=== PATIENT | female | born 1950 | race Caucasian/White ===

== ENCOUNTER 2022-02-22 14:46 | Inpatient (IN) | payer OTHER, MEDICAID ==
[~2022-02-22] VITALS: Ht 154.9 cm; Wt 67.6 kg
[2022-02-22] MEDS ORDERED: PIOG45TA63 PO (15:26)
[2022-02-22] MEDS ORDERED: SIMV40TA2 PO (15:26)
[2022-02-22] MEDS ORDERED: LOSA50TA3 PO (15:26)
[2022-02-22] MEDS ORDERED: ATEN-168 PO (15:26)
[2022-02-22] MEDS ORDERED: GLIP10TA PO (15:26)
[2022-02-22] MEDS ORDERED: ASPI-1457 PO (15:26)
[2022-02-22] MEDS ORDERED: METF-518 PO (15:26)
[2022-02-22 15:37] VITALS: BP_SYST 148
[2022-02-22 17:00] VITALS: BP_SYST 141
[2022-02-22] MEDS: D5/0.45 NS 1,000 ML IV SCH (17:12)
[2022-02-22] MEDS: cefTRIAXone 1 GM in D5W 50 ML IV SCH (17:35)
[2022-02-22 20:00] VITALS: BP_SYST 166
[2022-02-23] VITALS: BP_SYST 153
[2022-02-23 08:00] VITALS: BP_SYST 148
[2022-02-23] MEDS ORDERED: IPRATROPIUM BROM 0.5 MG/2.5 ML VIAL.NEB (ATROVENT) INH PRN ×2 (10:45→11:00)
[2022-02-23] MEDS ORDERED: ONDANSETRON HCL 4 MG/2 ML VIAL IVP PRN (10:45)
[2022-02-23] MEDS ORDERED: NALOXONE HCL 0.4 MG/ML AMP (NARCAN) IVP PRN ×2 (10:45)
[2022-02-23] MEDS ORDERED: LORazepam 2 MG/ML VIAL IVP PRN (10:45)
[2022-02-23] MEDS ORDERED: ACETAMINOPHEN 325 MG TABLET PO PRN ×2 (10:45→11:00)
[2022-02-23] MEDS ORDERED: HYDROcodone/ACETAMIN 10-325 MG TAB PO PRN (10:45)
[2022-02-23] MEDS ORDERED: ALBUTEROL SULFATE 0.083% 2.5 MG/3 ML VIAL.NEB INH PRN ×2 (10:45→11:00)
[2022-02-23] MEDS ORDERED: HYDROcodone/ACETAMIN 5-325 MG TAB (NORCO/ VICODIN) PO PRN (10:45)
[2022-02-23 10:53] VITALS: BP_SYST 148
[2022-02-23] MEDS ORDERED: ALBUTEROL MDI INHALATION 8 GM INH INH PRN (11:00)
[2022-02-23] MEDS: D5/0.45 NS 1,000 ML IV SCH ×2 (11:46→22:15)
[2022-02-23 12:00] VITALS: BP_SYST 143
[2022-02-23 12:03] LABS: BASOPHILS % (AUTO) 0.7 % (0.0-2.0); MONOCYTES # (AUTO) 0.5 K/uL (0.0-1.0)
[2022-02-23 12:15] LABS: EOSINOPHILS # (AUTO) 0.1 K/uL (0.0-0.4); EOSINOPHILS % (AUTO) 1.6 % (0.0-4.0); HEMOGLOBIN 9.7 g/dL (12.0-16.0); LYMPHOCYTES # (AUTO) 0.6 K/uL (1.0-5.5); LYMPHOCYTES % (AUTO) 14.9 % (20.5-51.5); MEAN CORPUSCULAR HEMOGLOBIN 30 pg (27-31); MEAN CORPUSCULAR HGB CONC 35 % (32-36); MEAN CORPUSCULAR VOLUME 87 fL (79.0-98.0); NEUTROPHILS # (AUTO) 2.9 K/uL (1.8-7.7); NEUTROPHILS % (AUTO) 69.8 % (40.0-70.0); PLATELET COUNT (AUTO) 229 K/uL (130-430); RED BLOOD CELL COUNT(AUTO) 3.22 MIL/uL (4.2-6.2); RED CELL DISTRIBUTION WIDTH 13.7 % (9.0-15.0); WHITE BLOOD COUNT (AUTO) 4.1 K/uL (4.8-10.8)
[2022-02-23 13:45] LABS: ALANINE AMINOTRANSFERASE 13 U/L (12-78); ALBUMIN 2.2 g/dL (3.4-4.8); ANION GAP 13 (5-15); ASPARTATE AMINOTRANSFERASE 15 U/L (10-37); CALCIUM 7.3 mg/dL (8.4-11.0); CHLORIDE 108 mmol/L (98-107); CREATININE 7.52 mg/dL (0.55-1.30); GLUCOSE 166 mg/dL (70-99); POTASSIUM 3.8 mmol/L (3.5-5.1); SODIUM SERUM 138 mmol/L (136-145); TOTAL BILIRUBIN 0.2 mg/dL (0.0-1.0); UREA NITROGEN, BLOOD 63 mg/dL (8-21)
[2022-02-23 16:00] VITALS: BP_SYST 149
[2022-02-23] MEDS: cefTRIAXone 1 GM in D5W 50 ML IV SCH (17:30)
[2022-02-23] MEDS: glipiZIDE XL 5 MG TAB ( GLUCOTROL XL) PO SCH (18:15)
[2022-02-23 19:55] LABS: BILIRUBIN,URINE NEGATIVE (NEGATIVE); BLOOD, URINE 2+ (NEGATIVE); COLOR,URINE YELLOW (YELLOW); GLUCOSE,URINE 2+ (NEGATIVE); KETONES,URINE NEGATIVE (NEGATIVE); LEUKOCYTE ESTERASE ,URINE NEGATIVE (NEGATIVE); NITRITE, URINE NEGATIVE (NEGATIVE); PROTEIN URINE 3+ (NEGATIVE); UROBILINOGEN,URINE 0.2 (0.2-1.0)
[2022-02-23 20:00] VITALS: BP_SYST 160
[2022-02-23 20:31] LABS: CLARITY/URINE SLIGHTLY HAZY (CLEAR)
[2022-02-23 21:43] LABS: BACTERIA,URINE FEW /HPF (None Seen); MUCUS,URINE None Seen /LPF (None Seen)
[2022-02-23] MEDS: SIMVASTATIN 40 MG TABLET PO SCH (21:59)
[2022-02-23 23:45] LABS: CHLORIDE,URINE RANDOM 73 mmol/L (55-125); URINE SODIUM, RANDOM 72 mmol/L (40-220)
[2022-02-24] VITALS: BP_SYST 157
[2022-02-24] MEDS ORDERED: D5W 1,000 ML IV PRN (06:30)
[2022-02-24] MEDS ORDERED: GLUCOSE (DEXTROSE) ORAL GEL -Adults PO PRN (06:30)
[2022-02-24] MEDS ORDERED: DEXTROSE 50% JECT 50 ML DISP.SYRIN ONE (06:44)
[2022-02-24 08:00] VITALS: BP_SYST 193
[2022-02-24] MEDS: glipiZIDE XL 5 MG TAB ( GLUCOTROL XL) PO SCH ×2 (08:00→17:00)
[2022-02-24] MEDS: D5/0.45 NS 1,000 ML IV SCH ×3 (08:28→23:31)
[2022-02-24] MEDS: ASPIRIN 81 MG TABLET(ECOTRIN) PO SCH (08:28)
[2022-02-24] MEDS: PIOGLITAZONE HCL 15 MG TABLET PO SCH (08:28)
[2022-02-24] MEDS: ATENOLOL 50 MG TABLET (TENORMIN) PO SCH (08:28)
[2022-02-24 08:46] LABS: BASOPHILS % (AUTO) 0.6 % (0.0-2.0); EOSINOPHILS # (AUTO) 0.2 K/uL (0.0-0.4); EOSINOPHILS % (AUTO) 3.5 % (0.0-4.0); HEMATOCRIT 30.4 % (36-48); HEMOGLOBIN 10.4 g/dL (12.0-16.0); LYMPHOCYTES # (AUTO) 0.6 K/uL (1.0-5.5); MEAN CORPUSCULAR HEMOGLOBIN 30 pg (27-31); MEAN CORPUSCULAR HGB CONC 34 % (32-36); MEAN CORPUSCULAR VOLUME 87 fL (79.0-98.0); MONOCYTES # (AUTO) 0.6 K/uL (0.0-1.0); MONOCYTES % (AUTO) 12.6 % (1.7-9.3); NEUTROPHILS # (AUTO) 3.6 K/uL (1.8-7.7); NEUTROPHILS % (AUTO) 71.3 % (40.0-70.0); PLATELET COUNT (AUTO) 233 K/uL (130-430); RED BLOOD CELL COUNT(AUTO) 3.48 MIL/uL (4.2-6.2); RED CELL DISTRIBUTION WIDTH 13.5 % (9.0-15.0)
[2022-02-24] MEDS ORDERED: LOSARTAN POTASSIUM 50 MG TABLET (COZAAR) PO SCH (09:00)
[2022-02-24 09:43] LABS: ALANINE AMINOTRANSFERASE 20 U/L (12-78); ALBUMIN 2.1 g/dL (3.4-4.8); ANION GAP 15 (5-15); ASPARTATE AMINOTRANSFERASE 19 U/L (10-37); CALCIUM 7.2 mg/dL (8.4-11.0); CHLORIDE 109 mmol/L (98-107); GLUCOSE 188 mg/dL (70-99); PHOSPHORUS 6.3 mg/dL (2.7-4.5); POTASSIUM 3.8 mmol/L (3.5-5.1); SODIUM SERUM 142 mmol/L (136-145); TOTAL BILIRUBIN 0.2 mg/dL (0.0-1.0); UREA NITROGEN, BLOOD 60 mg/dL (8-21)
[2022-02-24 10:03] LABS: CREATININE 8.02 mg/dL (0.55-1.30)
[2022-02-24 11:01] LABS: C-REACTIVE PROTEIN QUANT < 0.2 mg/dL (0-0.5)
[2022-02-24 12:00] VITALS: BP_SYST 148
[2022-02-24 12:44] LABS: ERYTHROCYTE SEDIMENTATION RATE 29 MM/HR (0-20)
[2022-02-24 16:00] VITALS: BP_SYST 142
[2022-02-24 20:00] VITALS: BP_SYST 182
[2022-02-24] MEDS: cefTRIAXone 1 GM in D5W 50 ML IV SCH (20:56)
[2022-02-24] MEDS: SIMVASTATIN 40 MG TABLET PO SCH (20:57)
[2022-02-24] MEDS ORDERED: cloNIDine HCL 0.1 MG TABLET PO PRN (23:00)
[2022-02-25] VITALS: BP_SYST 130
[2022-02-25 07:04] LABS: BASOPHILS % (AUTO) 0.3 % (0.0-2.0); EOSINOPHILS # (AUTO) 0.2 K/uL (0.0-0.4); EOSINOPHILS % (AUTO) 3.5 % (0.0-4.0); HEMATOCRIT 27.5 % (36-48); HEMOGLOBIN 9.5 g/dL (12.0-16.0); LYMPHOCYTES # (AUTO) 0.7 K/uL (1.0-5.5); LYMPHOCYTES % (AUTO) 15.9 % (20.5-51.5); MEAN CORPUSCULAR HEMOGLOBIN 30 pg (27-31); MEAN CORPUSCULAR HGB CONC 35 % (32-36); MEAN CORPUSCULAR VOLUME 87 fL (79.0-98.0); MONOCYTES # (AUTO) 0.6 K/uL (0.0-1.0); MONOCYTES % (AUTO) 13.7 % (1.7-9.3); NEUTROPHILS % (AUTO) 66.6 % (40.0-70.0); PLATELET COUNT (AUTO) 201 K/uL (130-430); RED BLOOD CELL COUNT(AUTO) 3.16 MIL/uL (4.2-6.2); RED CELL DISTRIBUTION WIDTH 13.6 % (9.0-15.0); WHITE BLOOD COUNT (AUTO) 4.5 K/uL (4.8-10.8)
[2022-02-25 07:51] LABS: ANION GAP 13 (5-15); CHLORIDE 108 mmol/L (98-107); CREATININE 7.23 mg/dL (0.55-1.30); GLUCOSE 207 mg/dL (70-99); PHOSPHORUS 6.1 mg/dL (2.7-4.5); POTASSIUM 4.1 mmol/L (3.5-5.1); SODIUM SERUM 141 mmol/L (136-145); UREA NITROGEN, BLOOD 57 mg/dL (8-21)
[2022-02-25 08:05] VITALS: BP_SYST 170
[2022-02-25 09:02] LABS: C-REACTIVE PROTEIN QUANT < 0.2 mg/dL (0-0.5); CALCIUM 7.3 mg/dL (8.4-11.0)
[2022-02-25 09:40] LABS: ERYTHROCYTE SEDIMENTATION RATE 22 MM/HR (0-20)
[2022-02-25] MEDS: ATENOLOL 50 MG TABLET (TENORMIN) PO SCH (09:59)
[2022-02-25] MEDS: ASPIRIN 81 MG TABLET(ECOTRIN) PO SCH (09:59)
[2022-02-25] MEDS: glipiZIDE XL 5 MG TAB ( GLUCOTROL XL) PO SCH ×2 (10:00→18:53)
[2022-02-25] MEDS: PIOGLITAZONE HCL 15 MG TABLET PO SCH (11:43)
[2022-02-25 11:58] VITALS: BP_SYST 150
[2022-02-25 12:01] VITALS: BP_SYST 150
[2022-02-25] MEDS ORDERED: CALCIUM ACETATE 667 MG CAP PO ONE (12:30)
[2022-02-25] MEDS: D5/0.45 NS 1,000 ML IV SCH (17:00)
[2022-02-25 17:47] VITALS: BP_SYST 165
[2022-02-25] MEDS: CALCIUM ACETATE 667 MG CAP PO SCH (18:53)
[2022-02-25] MEDS ORDERED: NIFEdipine 30 MG TAB.ER.24 PO ONE (19:00)
[2022-02-25] MEDS: SIMVASTATIN 40 MG TABLET PO SCH (20:48)
[2022-02-25] MEDS: cefTRIAXone 1 GM in D5W 50 ML IV SCH (21:59)
[2022-02-25 22:08] VITALS: BP_SYST 151
[2022-02-26 04:00] VITALS: BP_SYST 152
[2022-02-26] MEDS: D5/0.45 NS 1,000 ML IV SCH (04:00)
[2022-02-26 07:00] VITALS: BP_SYST 151
[2022-02-26 08:00] VITALS: BP_SYST 151
[2022-02-26 08:11] LABS: ANION GAP 11 (5-15); CALCIUM 7.8 mg/dL (8.4-11.0); CHLORIDE 110 mmol/L (98-107); CREATININE 7.21 mg/dL (0.55-1.30); GLUCOSE 64 mg/dL (70-99); PHOSPHORUS 6.1 mg/dL (2.7-4.5); POTASSIUM 4.1 mmol/L (3.5-5.1); SODIUM SERUM 142 mmol/L (136-145); UREA NITROGEN, BLOOD 55 mg/dL (8-21)
[2022-02-26 08:12] LABS: BASOPHILS % (AUTO) 0.2 % (0.0-2.0); EOSINOPHILS # (AUTO) 0.3 K/uL (0.0-0.4); EOSINOPHILS % (AUTO) 3.8 % (0.0-4.0); LYMPHOCYTES # (AUTO) 0.8 K/uL (1.0-5.5); LYMPHOCYTES % (AUTO) 11.8 % (20.5-51.5); MEAN CORPUSCULAR HEMOGLOBIN 30 pg (27-31); MEAN CORPUSCULAR HGB CONC 34 % (32-36); MEAN CORPUSCULAR VOLUME 88 fL (79.0-98.0); MONOCYTES # (AUTO) 0.7 K/uL (0.0-1.0); MONOCYTES % (AUTO) 11.2 % (1.7-9.3); NEUTROPHILS # (AUTO) 4.9 K/uL (1.8-7.7); PLATELET COUNT (AUTO) 248 K/uL (130-430); RED BLOOD CELL COUNT(AUTO) 3.66 MIL/uL (4.2-6.2); RED CELL DISTRIBUTION WIDTH 13.9 % (9.0-15.0); WHITE BLOOD COUNT (AUTO) 6.7 K/uL (4.8-10.8)
[2022-02-26 08:14] LABS: C-REACTIVE PROTEIN QUANT < 0.2 mg/dL (0-0.5)
[2022-02-26] MEDS: glipiZIDE XL 5 MG TAB ( GLUCOTROL XL) PO SCH ×2 (08:33→17:41)
[2022-02-26] MEDS: CALCIUM ACETATE 667 MG CAP PO SCH ×3 (08:33→17:41)
[2022-02-26] MEDS: PIOGLITAZONE HCL 15 MG TABLET PO SCH (08:34)
[2022-02-26] MEDS: ATENOLOL 50 MG TABLET (TENORMIN) PO SCH (08:34)
[2022-02-26] MEDS: ASPIRIN 81 MG TABLET(ECOTRIN) PO SCH (08:35)
[2022-02-26] MEDS: NIFEdipine 30 MG TAB.ER.24 PO SCH (08:35)
[2022-02-26] MEDS ORDERED: NIFEdipine 30 MG TAB.ER.24 PO SCH (09:00)
[2022-02-26 10:10] LABS: ERYTHROCYTE SEDIMENTATION RATE 32 MM/HR (0-20)
[2022-02-26] MEDS: INSULIN REGULAR, HUMAN 100 UNITS/ML, 10 ML VIAL (humuLIN R) SUBCUT PRN ×2 (11:24→17:42)
[2022-02-26 12:00] VITALS: BP_SYST 142
[2022-02-26] MEDS: NORMAL SALINE 5 ML DISP.SYRIN IVF SCH ×2 (14:01→22:48)
[2022-02-26 16:00] VITALS: BP_SYST 135
[2022-02-26 20:21] VITALS: BP_SYST 146
[2022-02-26] MEDS: SIMVASTATIN 40 MG TABLET PO SCH (21:16)
[2022-02-26] MEDS: cefTRIAXone 1 GM in D5W 50 ML IV SCH (21:16)
[2022-02-27] MEDS: NORMAL SALINE 5 ML DISP.SYRIN IVF SCH ×3 (05:57→21:07)
[2022-02-27 06:24] VITALS: BP_SYST 146
[2022-02-27 07:00] VITALS: BP_SYST 158
[2022-02-27] MEDS: DEXTROSE 50% JECT 50 ML DISP.SYRIN IVP PRN (07:02)
[2022-02-27 07:30] LABS: BASOPHILS % (AUTO) 0.4 % (0.0-2.0); EOSINOPHILS # (AUTO) 0.3 K/uL (0.0-0.4); EOSINOPHILS % (AUTO) 3.5 % (0.0-4.0); HEMATOCRIT 29.8 % (36-48); HEMOGLOBIN 10.2 g/dL (12.0-16.0); LYMPHOCYTES # (AUTO) 0.9 K/uL (1.0-5.5); LYMPHOCYTES % (AUTO) 12.9 % (20.5-51.5); MEAN CORPUSCULAR HEMOGLOBIN 30 pg (27-31); MEAN CORPUSCULAR HGB CONC 34 % (32-36); MEAN CORPUSCULAR VOLUME 87 fL (79.0-98.0); MONOCYTES % (AUTO) 13.7 % (1.7-9.3); NEUTROPHILS % (AUTO) 69.5 % (40.0-70.0); PLATELET COUNT (AUTO) 264 K/uL (130-430); RED BLOOD CELL COUNT(AUTO) 3.42 MIL/uL (4.2-6.2); RED CELL DISTRIBUTION WIDTH 13.3 % (9.0-15.0); WHITE BLOOD COUNT (AUTO) 7.2 K/uL (4.8-10.8)
[2022-02-27 07:37] LABS: ANION GAP 11 (5-15); C-REACTIVE PROTEIN QUANT 0.3 mg/dL (0-0.5); CALCIUM 7.6 mg/dL (8.4-11.0); CHLORIDE 109 mmol/L (98-107); CREATININE 6.72 mg/dL (0.55-1.30); PHOSPHORUS 5.5 mg/dL (2.7-4.5); SODIUM SERUM 141 mmol/L (136-145); UREA NITROGEN, BLOOD 53 mg/dL (8-21)
[2022-02-27 08:00] VITALS: BP_SYST 158
[2022-02-27 08:22] LABS: GLUCOSE 31 mg/dL (70-99)
[2022-02-27] MEDS: NIFEdipine 30 MG TAB.ER.24 PO SCH (09:00)
[2022-02-27] MEDS: CALCIUM ACETATE 667 MG CAP PO SCH ×3 (09:45→17:46)
[2022-02-27] MEDS: PIOGLITAZONE HCL 15 MG TABLET PO SCH (09:46)
[2022-02-27] MEDS: ASPIRIN 81 MG TABLET(ECOTRIN) PO SCH (09:46)
[2022-02-27] MEDS: glipiZIDE XL 5 MG TAB ( GLUCOTROL XL) PO SCH (09:46)
[2022-02-27] MEDS: ATENOLOL 50 MG TABLET (TENORMIN) PO SCH (09:46)
[2022-02-27 12:01] LABS: ERYTHROCYTE SEDIMENTATION RATE 28 MM/HR (0-20)
[2022-02-27] MEDS: INSULIN REGULAR, HUMAN 100 UNITS/ML, 10 ML VIAL (humuLIN R) SUBCUT PRN ×2 (12:23→17:32)
[2022-02-27 16:00] VITALS: BP_SYST 157
[2022-02-27 20:10] VITALS: BP_SYST 149
[2022-02-27] MEDS: cefTRIAXone 1 GM in D5W 50 ML IV SCH (21:06)
[2022-02-27] MEDS: SIMVASTATIN 40 MG TABLET PO SCH (21:07)
[2022-02-28 00:40] VITALS: BP_SYST 143
[2022-02-28] MEDS: NORMAL SALINE 5 ML DISP.SYRIN IVF SCH ×3 (06:51→22:19)
[2022-02-28 07:00] VITALS: BP_SYST 139
[2022-02-28] MEDS: DEXTROSE 50% JECT 50 ML DISP.SYRIN IVP PRN (07:01)
[2022-02-28 07:29] LABS: BASOPHILS % (AUTO) 0.3 % (0.0-2.0); EOSINOPHILS # (AUTO) 0.1 K/uL (0.0-0.4); HEMATOCRIT 30.4 % (36-48); HEMOGLOBIN 10.6 g/dL (12.0-16.0); LYMPHOCYTES # (AUTO) 0.4 K/uL (1.0-5.5); LYMPHOCYTES % (AUTO) 4.9 % (20.5-51.5); MEAN CORPUSCULAR HEMOGLOBIN 30 pg (27-31); MEAN CORPUSCULAR HGB CONC 35 % (32-36); MEAN CORPUSCULAR VOLUME 87 fL (79.0-98.0); MONOCYTES % (AUTO) 10.8 % (1.7-9.3); NEUTROPHILS # (AUTO) 7.5 K/uL (1.8-7.7); PLATELET COUNT (AUTO) 246 K/uL (130-430); RED CELL DISTRIBUTION WIDTH 13.3 % (9.0-15.0); WHITE BLOOD COUNT (AUTO) 9.1 K/uL (4.8-10.8)
[2022-02-28 08:00] VITALS: BP_SYST 182
[2022-02-28] MEDS: ASPIRIN 81 MG TABLET(ECOTRIN) PO SCH (08:54)
[2022-02-28] MEDS: CALCIUM ACETATE 667 MG CAP PO SCH ×3 (08:54→17:44)
[2022-02-28] MEDS: PIOGLITAZONE HCL 15 MG TABLET PO SCH (08:54)
[2022-02-28] MEDS: NIFEdipine 30 MG TAB.ER.24 PO SCH (08:55)
[2022-02-28] MEDS: ATENOLOL 50 MG TABLET (TENORMIN) PO SCH (08:55)
[2022-02-28 09:03] LABS: ALANINE AMINOTRANSFERASE 11 U/L (12-78); ANION GAP 7 (5-15); ASPARTATE AMINOTRANSFERASE 14 U/L (10-37); C-REACTIVE PROTEIN QUANT 2.7 mg/dL (0-0.5); CALCIUM 8.3 mg/dL (8.4-11.0); CHLORIDE 110 mmol/L (98-107); CREATININE 6.77 mg/dL (0.55-1.30); PHOSPHORUS 5.6 mg/dL (2.7-4.5); POTASSIUM 4.5 mmol/L (3.5-5.1); SODIUM SERUM 140 mmol/L (136-145); TOTAL BILIRUBIN 0.2 mg/dL (0.0-1.0); UREA NITROGEN, BLOOD 51 mg/dL (8-21)
[2022-02-28 09:43] LABS: ERYTHROCYTE SEDIMENTATION RATE 39 MM/HR (0-20)
[2022-02-28 10:12] LABS: GLUCOSE 34 mg/dL (70-99)
[2022-02-28] MEDS ORDERED: PIOG15TA8 PO (11:07)
[2022-02-28 16:00] VITALS: BP_SYST 165
[2022-02-28 20:00] VITALS: BP_SYST 137
[2022-02-28] MEDS: cefTRIAXone 1 GM in D5W 50 ML IV SCH (22:11)
[2022-02-28] MEDS: SIMVASTATIN 40 MG TABLET PO SCH (22:13)
[2022-03-01] VITALS: BP_SYST 134
[2022-03-01 04:00] VITALS: BP_SYST 146
[2022-03-01] MEDS: NORMAL SALINE 5 ML DISP.SYRIN IVF SCH (06:23)
[2022-03-01 07:00] VITALS: BP_SYST 154
[2022-03-01 08:00] VITALS: BP_SYST 154
[2022-03-01] MEDS: PIOGLITAZONE HCL 15 MG TABLET PO SCH (08:40)
[2022-03-01] MEDS: CALCIUM ACETATE 667 MG CAP PO SCH (08:40)
[2022-03-01] MEDS: ATENOLOL 50 MG TABLET (TENORMIN) PO SCH (08:40)
[2022-03-01] MEDS: NIFEdipine 30 MG TAB.ER.24 PO SCH (08:40)
[2022-03-01] MEDS: ASPIRIN 81 MG TABLET(ECOTRIN) PO SCH (08:40)
[2022-03-01 10:16] LABS: ANION GAP 11 (5-15); CALCIUM 8.3 mg/dL (8.4-11.0); CHLORIDE 105 mmol/L (98-107); CREATININE 6.54 mg/dL (0.55-1.30); GLUCOSE 85 mg/dL (70-99); POTASSIUM 4.3 mmol/L (3.5-5.1); SODIUM SERUM 136 mmol/L (136-145); UREA NITROGEN, BLOOD 51 mg/dL (8-21)
[2022-03-01 10:59] VITALS: BP_SYST 154
[2022-03-01 14:43] LABS: BASOPHILS % (AUTO) 0.6 % (0.0-2.0); EOSINOPHILS # (AUTO) 0.1 K/uL (0.0-0.4); EOSINOPHILS % (AUTO) 0.7 % (0.0-4.0); HEMATOCRIT 29.4 % (36-48); HEMOGLOBIN 9.9 g/dL (12.0-16.0); LYMPHOCYTES # (AUTO) 0.8 K/uL (1.0-5.5); LYMPHOCYTES % (AUTO) 10.5 % (20.5-51.5); MEAN CORPUSCULAR HEMOGLOBIN 30 pg (27-31); MEAN CORPUSCULAR HGB CONC 34 % (32-36); MEAN CORPUSCULAR VOLUME 88 fL (79.0-98.0); MONOCYTES % (AUTO) 12.6 % (1.7-9.3); NEUTROPHILS # (AUTO) 5.8 K/uL (1.8-7.7); NEUTROPHILS % (AUTO) 75.6 % (40.0-70.0); PLATELET COUNT (AUTO) 259 K/uL (130-430); RED BLOOD CELL COUNT(AUTO) 3.32 MIL/uL (4.2-6.2); RED CELL DISTRIBUTION WIDTH 13.7 % (9.0-15.0); WHITE BLOOD COUNT (AUTO) 7.7 K/uL (4.8-10.8)
== END 2022-03-01 13:00 | disposition home health service (06) | DRG 177 ==
LOC: SMU 14:46 → STU 15:16 → SMU 02-24 05:55
PROVIDERS: ADMIT Preventive Medicine Preventive Medicine/Occupational Environmental Medicine; ATTEND Preventive Medicine Preventive Medicine/Occupational Environmental Medicine
DX: U07.1 COVID-19 (principal); E43 Unspecified severe protein-calorie malnutrition; N17.9 Acute kidney failure, unspecified; N39.0 Urinary tract infection, site not specified; I12.0 Hypertensive chronic kidney disease with stage 5 chronic kidney disease or end stage renal disease; E87.2 Acidosis; N18.5 Chronic kidney disease, stage 5; E11.649 Type 2 diabetes mellitus with hypoglycemia without coma; E11.21 Type 2 diabetes mellitus with diabetic nephropathy; E78.5 Hyperlipidemia, unspecified; E83.41 Hypermagnesemia; D64.9 Anemia, unspecified; E88.09 Other disorders of plasma-protein metabolism, not elsewhere classified; E83.39 Other disorders of phosphorus metabolism; E83.52 Hypercalcemia; N28.1 Cyst of kidney, acquired; E11.65 Type 2 diabetes mellitus with hyperglycemia; E83.51 Hypocalcemia; E11.22 Type 2 diabetes mellitus with diabetic chronic kidney disease; D72.819 Decreased white blood cell count, unspecified; Z20.822 Contact with and (suspected) exposure to COVID-19
CPT/HCPCS: 36415; 71045; 76770; 80048; 80053; 81000; 82435; 82533; 82550; 82570; 82962; 83735; 84100; 84302; 85025; 85651-TC; 86140; 87040; 87086; 97163-GP; J0696; J1815; J7060